=== PATIENT | male | born 1985 | race Caucasian/White ===

== ENCOUNTER 2017-02-06 13:45 | Emergency (ER) | payer SELFPAY ==
[~2017-02-06] VITALS: Ht 160 cm; Wt 66.0 kg
[2017-02-06 13:46] VITALS: BP 147/85; PULSE 86; RESP 18; TEMP 98.6; O2SAT 99
--- NOTE | 2017-02-06 14:08 | PD ---
HPI Chief Complaint: Chest Pain Time Seen by Provider: 14:04 Travel History International Travel<30 days: No Contact w/Intl Traveler<30days: No Traveled to known affect area: No History of Present Illness HPI 31-year-old male patient presents to the ER today with left substernal chest pains, states that this morning he had an episode where he felt very weak like he was going to pass out. He states that it happens many times in the morning but states that the chest pain episode is new. He states that it feels like somebody hit him in the chest and there is a constant midsternal chest discomfort. He denies any shortness of breath, but has mild nausea. He denies any vomiting or any other symptoms. He does not have family history of early heart disease. He states that his friend thinks is anxiety but he denies any unusual amount of stress. Modifying Factors: None Associated Signs & Symptoms: Chest discomfort, near-syncope Risk Factors: None PFSH Social History Tobacco Use: No Allergies-Medications (Allergen,Severity, Reaction): Coded Allergies: No Known Allergies (Unverified , 02/06/17) Review of Systems Except as stated in HPI: all other systems reviewed are Neg Physical Exam Narrative GENERAL: Well-developed young male patient currently in mild distress at awake and oriented 3. SKIN: Focused skin assessment warm/dry. HEAD: Atraumatic. Normocephalic. EYES: Pupils equal and round. No scleral icterus. No injection or drainage. ENT: No nasal bleeding or discharge. Mucous membranes pink and moist. NECK: Trachea midline. No JVD. Supple. CARDIOVASCULAR: Regular rate and rhythm. No murmur appreciated. RESPIRATORY: No accessory muscle use. Clear to auscultation. Breath sounds equal bilaterally. GASTROINTESTINAL: Abdomen soft, non-tender, nondistended. Hepatic and splenic margins not palpable. MUSCULOSKELETAL: No obvious deformities. No clubbing. No cyanosis. No edema. NEUROLOGICAL: Awake and alert. No obvious cranial nerve deficits. Motor grossly within normal limits. Normal speech. PSYCHIATRIC: Appropriate mood and affect; insight and judgment normal. Data Data Last Documented VS Vital Signs Date Time Temp Pulse Resp B/P (MAP) Pulse Ox O2 Delivery O2 Flow Rate FiO2 02/06/17 14:10 100 Nasal Cannula 2.00 02/06/17 14:10 16 02/06/17 13:46 98.6 86 Orders Orders Ckmb (Isoenzyme) Profile (02/06/17 14:04) Complete Blood Count With Diff (02/06/17 14:04) Comprehensive Metabolic Panel (02/06/17 14:04) Magnesium (Mg) (02/06/17 14:04) Prothrombin Time / Inr (Pt) (02/06/17 14:04) Act Partial Throm Time (Ptt) (02/06/17 14:04) Troponin I (02/06/17 14:04) Lipase (02/06/17 14:04) Chest, Single Ap (02/06/17 14:04) Sodium Chloride 0.9% Flush (Ns Flush) (02/06/17 14:15) CKMB (02/06/17 14:20) CKMB% (02/06/17 14:20) Activity Bed Rest With Brp (02/06/17 15:27) Vital Signs (Adult) Q4H (02/06/17 15:27) Cardiac Rhythm .As Directed (02/06/17 15:27) Notify Dr: Other .PRN (02/06/17 15:27) Notify Dr. Parameters (02/06/17 15:27) Resp Oxygen Nasal Cannula (02/06/17 ) Ckmb (Isoenzyme) Profile (02/06/17 15:27) Ckmb (Isoenzyme) Profile (02/06/17 18:27) Troponin I (02/06/17 15:27) Troponin I (02/06/17 18:27) Electrocardiogram (02/06/17 15:27) Electrocardiogram (02/06/17 18:27) ^ Obtain (02/06/17 15:27) Sodium Chloride 0.9% Flush (Ns Flush) (02/06/17 15:30) Sodium Chloride 0.9% Flush (Ns Flush) (02/06/17 21:00) Aspirin (Aspirin) (02/07/17 09:00) Scheduling Assistant / Telemetry RUDY.Q8H (02/06/17 15:27) Labs Laboratory Tests Test 02/06/17 14:20 White Blood Count 6.5 TH/MM3 Red Blood Count 4.97 MIL/MM3 Hemoglobin 15.4 GM/DL Hematocrit 43.6 % Mean Corpuscular Volume 87.7 FL Mean Corpuscular Hemoglobin 30.9 PG Mean Corpuscular Hemoglobin Concent 35.3 % Red Cell Distribution Width 13.3 % Platelet Count 246 TH/MM3 Mean Platelet Volume 8.0 FL Neutrophils (%) (Auto) 68.2 % Lymphocytes (%) (Auto) 24.7 % Monocytes (%) (Auto) 6.3 % Eosinophils (%) (Auto) 0.3 % Basophils (%) (Auto) 0.5 % Neutrophils # (Auto) 4.4 TH/MM3 Lymphocytes # (Auto) 1.6 TH/MM3 Monocytes # (Auto) 0.4 TH/MM3 Eosinophils # (Auto) 0.0 TH/MM3 Basophils # (Auto) 0.0 TH/MM3 CBC Comment DIFF FINAL Differential Comment Prothrombin Time 10.5 SEC Prothromb Time International Ratio 1.0 RATIO Activated Partial Thromboplast Time 26.4 SEC Blood Urea Nitrogen 12 MG/DL Creatinine 0.97 MG/DL Random Glucose 95 MG/DL Total Protein 7.6 GM/DL Albumin 4.2 GM/DL Calcium Level 8.5 MG/DL Magnesium Level 2.0 MG/DL Alkaline Phosphatase 71 U/L Aspartate Amino Transf (AST/SGOT) 13 U/L Alanine Aminotransferase (ALT/SGPT) 27 U/L Total Bilirubin 0.5 MG/DL Sodium Level 139 MEQ/L Potassium Level 3.6 MEQ/L Chloride Level 106 MEQ/L Carbon Dioxide Level 26.1 MEQ/L Anion Gap 7 MEQ/L Estimat Glomerular Filtration Rate 92 ML/MIN Total Creatine Kinase 117 U/L Creatine Kinase MB 1.3 NG/ML Troponin I LESS THAN 0.02 NG/ML Lipase 75 U/L MDM Medical Decision Making Medical Screen Exam Complete: Yes Emergency Medical Condition: Yes Medical Record Reviewed: Yes Interpretation(s) EKG shows NSR, no ST elevation or depression, and no arrhythmias. No significant T-wave inversions. Laboratory Tests Test 02/06/17 14:20 Aspartate Amino Transf (AST/SGOT) 13 U/L (15-37) Troponin I LESS THAN 0.02 NG/ML Last 24 hours Impressions Chest X-Ray 02/06/17 1404 Signed Impressions: Service Date/Time: Wednesday, February 06, 2017 14:11 - CONCLUSION: Minimal nonspecific parenchymal changes left base.. Paul Colon MD FACR Differential Diagnosis Chest pains: Dysrhythmias versus ACS versus pneumonia versus anxiety attack Narrative Course Chest x-ray showing haziness in the left lower base and EKG otherwise is unremarkable. Cardiac enzymes unremarkable. Vital signs are stable in the ER. At this point, suspect that he may have an underlying pneumonia. Plan would be to treat him with antibiotics and have her follow-up with primary care doctor. Return for worsening in symptoms as necessary. The plan has been discussed with him and he states understanding Diagnosis Primary Impression: Chest pain Additional Impression: Pneumonia Med/Other Pt SpecificInfo: Prescription(s) given Scripts Ibuprofen (Ibuprofen) 600 Mg Tab 600 MG PO Q6H Y for Pain/Inflammation, #20 TAB 0 Refills Prov: Nickolas Goss MD 02/06/17 Azithromycin (Zithromax Z-Lio) 250 Mg Dspk 250 MG PO DIRECTED for Infection, #1 DSPK 0 Refills 500 MG (2 tabs) day 1, then 1 tab days 2-5. Prov: Nickolas Goss MD 02/06/17 Disposition: 01 DISCHARGE HOME Condition: Stable Nickolas Goss MD Feb 06, 2017 14:08
[2017-02-06 14:10] VITALS: RESP 16; O2SAT 98
[2017-02-06] MEDS ORDERED: SODIUM CHLORIDE 0.9% FLUSH 10 ML FLUSH IVF PRN (14:15)
--- NOTE | 2017-02-06 14:33 | RADRPT ---
EXAM DATE/TIME: 02/06/2017 14:11 [facility] COMPARISON: No previous studies available for comparison. INDICATIONS : Left sided chest pain for one month. MEDICAL HISTORY : None. SURGICAL HISTORY : None. ENCOUNTER: Initial ACUITY: 1 month PAIN SCORE: 5/10 LOCATION: Left chest FINDINGS: Minimal parenchymal changes left base right lung clear. The heart and pulmonary vascularity are lena l. The portion of the bony skeleton visualized is unremarkable. CONCLUSION: Minimal nonspecific parenchymal changes left base.. Paul Colon MD FACR on February 06, 2017 at 14:30 Board Certified Radiologist. This report was verified electronically.
[2017-02-06 14:40] LABS: AUTOMATED NEUTROPHIL # 4.4 TH/MM3 (1.8-7.7); BASOPHIL % 0.5 % (0.0-2.0); EOSINOPHIL % 0.3 % (0.0-4.0); HEMATOCRIT 43.6 % (39.0-51.0); HEMOGLOBIN 15.4 GM/DL (13.0-17.0); LYMPH % 24.7 % (9.0-44.0); LYMPHOCYTE # 1.6 TH/MM3 (1.0-4.8); MEAN CELL VOLUME 87.7 FL (80.0-100.0); MEAN CORPUSCULAR HEMOGLOBIN 30.9 PG (27.0-34.0); MEAN CORPUSCULAR HGB CONC 35.3 % (32.0-36.0); MONO % 6.3 % (0.0-8.0); MONOCYTE # 0.4 TH/MM3 (0-0.9); NEUT % 68.2 % (16.0-70.0); PLATELET COUNT 246 TH/MM3 (150-450); RED BLOOD COUNT 4.97 MIL/MM3 (4.50-5.90); RED CELL DISTRIBUTION WIDTH 13.3 % (11.6-17.2); WHITE BLOOD COUNT 6.5 TH/MM3 (4.0-11.0)
[2017-02-06 14:53] LABS: PROTHROMBIN TIME - PATIENT 10.5 SEC (9.8-11.6)
[2017-02-06 15:01] LABS: ALBUMIN 4.2 GM/DL (3.4-5.0); ALT (GPT) 27 U/L (12-78); AST (GOT) 13 U/L (15-37); BICARBONATE 26.1 MEQ/L (21.0-32.0); BLOOD UREA NITROGEN 12 MG/DL (7-18); CALCIUM 8.5 MG/DL (8.5-10.1); CHLORIDE 106 MEQ/L (98-107); CREATININE 0.97 MG/DL (0.60-1.30); GLOMERULAR FILTRATION RATE 92 ML/MIN (>89); GLUCOSE,RANDOM 95 MG/DL (74-106); LIPASE 75 U/L (73-393); SODIUM (NA) 139 MEQ/L (136-145)
[2017-02-06 15:05] LABS: ALKALINE PHOSPHATASE 71 U/L (45-117); TOTAL BILIRUBIN ADULT 0.5 MG/DL (0.2-1.0); TOTAL PROTEIN 7.6 GM/DL (6.4-8.2); TROPONIN I LESS THAN 0.02 NG/ML (0.02-0.05)
[2017-02-06] MEDS ORDERED: SODIUM CHLORIDE 0.9% FLUSH 10 ML FLUSH IV FLUSH PRN (15:30)
[2017-02-06] MEDS ORDERED: IBUP-232 PO (15:35)
[2017-02-06] MEDS ORDERED: ZITHTAB PO (15:35)
[2017-02-06] MEDS ORDERED: SODIUM CHLORIDE 0.9% FLUSH 10 ML FLUSH IV FLUSH SCH (21:00)
[2017-02-07] MEDS ORDERED: ASPIRIN 325 MG TAB PO SCH (09:00)
--- NOTE | 2017-02-07 14:32 | EKG ---
Date Performed: 02/06/2017 Time Performed: 13:57:37 PTAGE: 31 years EKG: Sinus rhythm WITH SINUS ARRHYTHMIA NORMAL ECG NO PREVIOUS TRACING DOCTOR: Ryan Mcmillan Interpretating Date/Time 02/07/2017 14:32:09
== END 2017-02-06 16:21 | disposition home or self-care (01) ==
LOC: NEPD 13:45 → NEDA 15:29 → UNDOADMOB 15:29 → UNDODISOB 16:21 → NEPD 16:21
DX: R07.9 Chest pain, unspecified (principal); J18.9 Pneumonia, unspecified organism; I49.8 Other specified cardiac arrhythmias
CPT/HCPCS: 71010; 80053; 82550; 82552; 83690; 83735; 84484; 85025; 85610; 85730; 93005; 99284

== ENCOUNTER 2017-04-23 19:53 | Emergency (ER) | payer SELFPAY ==
[~2017-04-23 19:53] MED LIST: IBUP-232 PO; ZITHTAB PO
== END 2017-04-23 20:17 | disposition left against medical advice (07) ==
LOC: NED 19:53
DX: R06.02 Shortness of breath (principal)
CPT/HCPCS: 99281